=== PATIENT | female | born 1980 | race Asian ===

== ENCOUNTER 2017-06-14 11:39 | Outpatient (CLI) | payer OTHER | END 2017-06-14 12:40 | disposition home or self-care (01) | LOC: LAB 11:39 | DX: A49.02 Methicillin resistant Staphylococcus aureus infection, unspecified site (principal) | CPT/HCPCS: 80202 ==

== ENCOUNTER 2017-07-12 10:51 | Emergency (ER) | payer OTHER ==
[~2017-07-12] VITALS: Ht 160 cm; Wt 68.0 kg
== END 2017-07-12 11:44 | disposition home or self-care (01) ==
LOC: ED 10:51
DX: K04.7 Periapical abscess without sinus (principal)
CPT/HCPCS: 96372; 99283; J0696

== ENCOUNTER 2017-08-02 14:21 | Outpatient (CLI) | payer OTHER | END 2017-08-02 19:07 | disposition home or self-care (01) | LOC: LAB 14:21 | DX: E87.5 Hyperkalemia (principal) | CPT/HCPCS: 84132 ==

== ENCOUNTER 2017-09-08 13:17 | Emergency (ER) | payer OTHER ==
[~2017-09-08] VITALS: Ht 160 cm; Wt 727.1 kg
[2017-09-08] MEDS ORDERED: LISI10TA11 PO (13:40)
== END 2017-09-08 14:56 | disposition home or self-care (01) ==
LOC: ED 13:17
DX: L02.01 Cutaneous abscess of face (principal); L02.31 Cutaneous abscess of buttock; L02.415 Cutaneous abscess of right lower limb
CPT/HCPCS: 99281